=== PATIENT | male | born 1945 | race Caucasian/White ===

== ENCOUNTER 2018-02-16 11:44 | Emergency (ER) | payer MEDICARE, BC ==
[2018-02-16 12:11] VITALS: BP 170/93
[2018-02-16] MEDS ORDERED: Gelfoam 12-7 ADSORBABL SPONGE* 1 EA SPONGE TOPICAL ONE (13:01)
[2018-02-16] MEDS ORDERED: Tetan/Diph/Pertus SYR(Tdap)* 0.5 ML SYR(BOOSTRIX) use SYR IM ONE (13:01)
--- NOTE | 2018-02-16 13:09 | UC ---
Bite Injury/Animal HPI - HPI Summary HPI Summary: Patient was playing with his 1-year-old puppy about 1 hour [employer] when the puppy accidentally grazed the patient's right thumb with his teeth. Patient presents with a laceration to his thumb. Last tetanus 2007. Puppy up-to-date on all vaccinations including rabies. - History of Current Complaint Chief Complaint: UCBiteInjury Stated Complaint: THUMB LAC Time Seen by Provider: 02/16/18 12:49 Hx Obtained From: Patient Severity Currently: Moderate Severity Initially: Moderate Pain Intensity: 6 Pain Scale Used: 0-10 Numeric Onset/Duration: Sudden Onset, Lasting Hours, Still Present Type of Bite: Pet Has Animal Been Immunized?: Yes Character: Abrasion/Laceration Aggravating Factor(s): Nothing Alleviating Factor(s): Nothing Associated Signs And Symptoms: Negative: Fever, Erythema, Drainage, Numbness/ Tingling, Limited ROM Animal Available for Observation: Yes - Allergies/Home Medications Allergies/Adverse Reactions: Allergies Allergy/AdvReac Type Severity Reaction Status Date / Time Penicillins Allergy Intermediate Hives Verified 02/16/18 12:13 dabigatran etexilate Allergy Hives Verified 02/16/18 12:13 yellow dye Allergy Hives Verified 02/16/18 12:13 Home Medications: Home Medications Aspirin [Aspir-Low] 81 mg PO DAILY WITH MEAL 02/16/18 [History Confirmed ] Atorvastatin* [Lipitor 20 MG*] 20 mg PO DAILY 02/16/18 [History Confirmed ] Verapamil HCl [Verapamil ER] 120 mg PO DAILY WITH MEAL 02/16/18 [History] PMH/Surg Hx/FS Hx/Imm Hx Cardiovascular History: Cardiac Disease - pacemaker - Surgical History Surgical History: Yes Surgery Procedure, Year, and Place: for pacemaker, vasectomy - Family History Known Family History: Positive: Unknown - Social History Alcohol Use: Weekly Alcohol Amount: 1 drink/week Substance Use Type: None Smoking Status (MU): Never Smoked Tobacco Review of Systems Constitutional: Negative Skin: Other - laceration Respiratory: Negative Cardiovascular: Negative Gastrointestinal: Negative Musculoskeletal: Negative All Other Systems Reviewed And Are Negative: Yes Physical Exam Triage Information Reviewed: Yes Appearance: Well-Appearing, No Pain Distress, Well-Nourished Vital Signs: Initial Vital Signs Temp 97.9 F 02/16/18 12:03 Pulse 44 06/20/18 12:03 Resp 18 02/16/18 12:03 BP 170/93 02/16/18 12:03 Pulse Ox 98 02/16/18 12:03 Vital Signs Reviewed: Yes Eyes: Positive: Conjunctiva Clear ENT: Positive: Hearing grossly normal Neck: Positive: Supple Respiratory: Positive: No respiratory distress, No accessory muscle use Cardiovascular: Positive: Pulses Normal Abdomen Description: Positive: Soft Musculoskeletal: Positive: ROM Intact, No Edema Neurological: Positive: Alert Psychological: Positive: Age Appropriate Behavior Skin: Positive: Other - 1.5cm x 0.3cm jagged area of skin avulsion right thumb overlying proximal phalanx. Negative: rashes Bite Injury Course/Dx - Differential Dx/Diagnosis Provider Diagnoses: SKIN AVULSION RIGHT THUMB DUE TO DOG BITE Discharge - Sign-Out/Discharge Documenting (check all that apply): Discharge/Admit/Transfer - Discharge Plan Condition: Stable Disposition: HOME Prescriptions: Doxycycline Monohydrate [Doxycycline Monohydrate] 1 cap PO BID #20 cap Patient Education Materials: Animal Bite (ED) Referrals: Elvis Duong MD [Primary Care Provider] - If Needed Additional Instructions: AFTER 3-4 DAYS GELFOAM SHOULD START TO FLAKE OFF. GENTLY REMOVE IT AND THEN COVER WITH NON STICK BANDAGE. WEAR THE SPLINT NEEDED TO KEEP FINGER FROM BENDING. TAKE DOXY FOR FULL COURSE. ENSURE ADEQUATE PROTECTION FROM THE SUN WHILE ON THIS MEDICATION. SEEK FOLLOW-UP IF YOU DEVELOP SPREADING REDNESS OF THE SKIN, PURULENT DRAINAGE, FEVER, INCREASED PAIN OR ANY OTHER CONCERNING SYMPTOMS. TETANUS IMMUNIZATION GIVEN (TDAP): You have been given an immunization against tetanus. Please record this in your records. In general, a booster is needed only once every 10 years. The tetanus shot protects against tetanus or "lockjaw," which is a complication of certain wound infections (the tetanus shot cannot protect against the actual infection). The immunization site may become warm and red due to local reaction. If this occurs, apply warm compresses and take aspirin or ibuprofen to reduce inflammation and discomfort. Return for evaluation if the reaction becomes severe. - Billing Disposition and Condition Condition: STABLE Disposition: Home
== END 2018-02-16 13:26 | disposition home or self-care (01) ==
LOC: UCEAST 11:44
DX: S61.051A Open bite of right thumb without damage to nail, initial encounter (principal); W54.0XXA Bitten by dog, initial encounter; Y92.9 Unspecified place or not applicable; Z79.82 Long term (current) use of aspirin; Z95.0 Presence of cardiac pacemaker
CPT/HCPCS: 90715; 99213; A9270-GY; G0463

== ENCOUNTER 2022-07-29 05:39 | Observation (INO) ==
[2022-07-29] MEDS ORDERED: Buffered Lidocaine 1% SYRIN 1 ml INTRADERM ONE (06:00)
[2022-07-29] MEDS ORDERED: Lactated Ringers 1000 ml BAG 1,000 ML IV SCH ×3 (06:00→15:29)
[2022-07-29] MEDS ORDERED: Clindamycin 900 MG/D5W BAG 900 MG/50 ML BAG IVPB ONE (06:10)
[2022-07-29 06:16] LABS: INR 1.1 (0.89-1.11)
[2022-07-29] MEDS ORDERED: ROPIVACAINE 5 MG/ML 30 ML BTL (0.5%) ONE (07:03)
[2022-07-29] MEDS ORDERED: Lidocaine 1% MPF 5 ML VIAL ONE (07:03)
[2022-07-29] MEDS ORDERED: Lidocaine 2% PF 5 ML VIAL ONE (07:21)
[2022-07-29] MEDS ORDERED: Rocuronium 50 mg VIAL 10 mg/ml 5 ml VIAL (50 mg) ONE ×2 (07:21→09:14)
[2022-07-29] MEDS ORDERED: fentaNYL 100 mcg/2 ml 50 MCG/ML VIAL ONE (07:21)
[2022-07-29] MEDS ORDERED: Propofol 10 MG/ML 20 ML BTL ONE (07:21)
[2022-07-29] MEDS ORDERED: Midazolam 2 mg/2 ml VIAL 1 mg/ml 2 ml VIAL (2 mg) ONE ×2 (07:22→07:24)
[2022-07-29] MEDS ORDERED: Vancomycin 1,000 MG VIAL ONE (07:37)
[2022-07-29] MEDS ORDERED: Phenylephrine IV 10 MG/ML 1 ml VIAL ONE (08:21)
[2022-07-29] MEDS ORDERED: Dexamethasone IV 4 MG/ML VIAL 1 ml VIAL ONE (08:59)
[2022-07-29] MEDS ORDERED: Ondansetron 4 mg VIAL 2 MG/ML 2 ml VIAL ONE (08:59)
[2022-07-29] MEDS ORDERED: HYDROmorphone 1 MG/1 ML SYRINGE IV PRN (10:22)
[2022-07-29] MEDS ORDERED: Naloxone 0.4 mg VIAL 0.4 mg/ml 1 ml VIAL IV PRN (10:22)
[2022-07-29] MEDS ORDERED: Acetaminophen IV 1 GM/100ML 1,000 MG/100 ML BAG IV ONE (11:23)
[2022-07-29] MEDS ORDERED: Ondansetron 4 mg VIAL 2 MG/ML 2 ml VIAL IV PRN (11:50)
[2022-07-29] MEDS ORDERED: Ondansetron ODT 4 mg TAB 4 MG TAB PO PRN (11:50)
[2022-07-29] MEDS ORDERED: Morphine 2 MG/ML SYRINGE IV PRN (11:50)
[2022-07-29] MEDS ORDERED: Lactulose 30 ml UDC PO PRN (11:50)
[2022-07-29] MEDS ORDERED: Magnesium Hydroxide LIQ 30 ML UDC PO PRN (11:50)
[2022-07-29] MEDS ORDERED: Clindamycin 600 MG/D5W BAG 600 MG/50 ML BAG IV SCH ×2 (12:00→16:00)
[2022-07-29] MEDS: Magnesium Hydroxide LIQ 30 ML UDC PO SCH (20:05)
[2022-07-29] MEDS ORDERED: Aspirin EC 81 mg TAB.EC (enteric coated) PO SCH (21:00)
[2022-07-30] MEDS: Clindamycin 600 MG/D5W BAG 600 MG/50 ML BAG IV SCH ×2 (02:11→10:10)
[2022-07-30 06:25] LABS: Hematocrit 35 % (42-52); Hemoglobin 11.9 g/dL (14.0-18.0); Mean Platelet Volume 7.8 fL (7.4-10.4); Platelet Count 127 10^3/uL (150-450)
[2022-07-30 06:42] LABS: Calcium 8.3 mg/dL (8.6-10.3); Potassium 4.5 mmol/L (3.5-5.0); eGFR CKD-EPI 83.5 (>60)
[2022-07-30] MEDS ORDERED: Vitamin THERAPEUTIC TAB PO SCH (09:00)
[2022-07-30] MEDS: Magnesium Hydroxide LIQ 30 ML UDC PO SCH (09:02)
[2022-07-30 11:30] VITALS: BP 114/73
== END 2022-07-30 14:15 | disposition home or self-care (01) ==
LOC: SSU → AA 05:39 → INTOOBSV 05:39
PROVIDERS: ADMIT Orthopaedic Surgery; ATTEND Orthopaedic Surgery

== ENCOUNTER 2023-06-18 16:13 | Inpatient (IN) ==
[2023-06-18 19:31] LABS: ABS Eosinophils 0.3 10^3/uL (0.0-0.5); ABS Lymphocytes 1.2 10^3/uL (1.0-4.8); ABS Monocytes 0.6 10^3/uL (0.0-1.1); ABS Neutrophils 3.1 10^3/uL (1.5-7.6); ABS Nucleated RBC 0.01 10^3/ul; Eosinophil % 5.7 %; Hematocrit 42.3 % (38-53); Hemoglobin 14.5 g/dL (13.2-16.3); Lymphocyte % 23.5 %; Mean Corpuscular Hemoglobin 31.8 pg (27-33); Mean Corpuscular Hgb Conc 34.4 g/dL (31-36); Mean Corpuscular Volume 92.5 fL (80-97); Mean Platelet Volume 7.2 fL (7.5-11.2); Nucleated Red Blood Cells % 0.2 %/100WBC (0.0-0.8); Platelet Count 176 10^3/uL (150-450); Red Blood Count 4.57 10^6/uL (4.06-5.63); Red Cell Distribution Width 14.2 % (12-17); White Blood Count 5.3 10^3/uL (3.6-10.2)
[2023-06-18 19:43] LABS: Albumin 4.1 g/dL (3.2-5.2); Potassium 3.9 mmol/L (3.5-5.0); Total Bilirubin 0.7 mg/dL (0.2-1.0)
[2023-06-18 19:49] LABS: Albumin/Globulin Ratio 1.5 (1-3); C Reactive Protein 27.23 mg/L (<8.01); Creatinine, Serum 1.16 mg/dL (0.67-1.17); Globulin 2.7 g/dL (2-4); Total Protein 6.8 g/dL (6.4-8.9); eGFR CKD-EPI 65.3 (>60)
[2023-06-18 20:12] LABS: Calcium 8.7 mg/dL (8.6-10.3)
[2023-06-19 07:02] LABS: ABS Eosinophils 0.3 10^3/uL (0.0-0.5); ABS Lymphocytes 1.1 10^3/uL (1.0-4.8); ABS Monocytes 0.5 10^3/uL (0.0-1.1); ABS Nucleated RBC 0.01 10^3/ul; Eosinophil % 6.6 %; Hematocrit 40.3 % (38-53); Lymphocyte % 28.3 %; Mean Corpuscular Hemoglobin 31.9 pg (27-33); Mean Corpuscular Hgb Conc 34.8 g/dL (31-36); Mean Corpuscular Volume 91.5 fL (80-97); Mean Platelet Volume 7.2 fL (7.5-11.2); Nucleated Red Blood Cells % 0.2 %/100WBC (0.0-0.8); Platelet Count 156 10^3/uL (150-450); White Blood Count 3.9 10^3/uL (3.6-10.2)
[2023-06-19 07:05] LABS: Albumin 3.8 g/dL (3.2-5.2); Calcium 8.4 mg/dL (8.6-10.3); Magnesium 2.1 mg/dL (1.9-2.7); Total Bilirubin 0.9 mg/dL (0.2-1.0)
[2023-06-19 07:11] LABS: Albumin/Globulin Ratio 1.6 (1-3); Creatinine, Serum 0.96 mg/dL (0.67-1.17); Globulin 2.4 g/dL (2-4); Total Protein 6.2 g/dL (6.4-8.9); eGFR CKD-EPI 81.9 (>60)
[2023-06-19] MEDS ORDERED: VERAPAMIL PM 100 MG PO SCH (09:00)
[2023-06-19] MEDS ORDERED: Aspirin EC 325 mg TAB.EC PO ONE (17:30)
[2023-06-19 19:23] LABS: TSH Ultra Thyroid Stim Horm 1.31 mcIU/mL (0.34-5.60)
[2023-06-19 19:29] LABS: Thyroid Peroxidase Antibodies < 0.25 IU/mL (<9)
[2023-06-19 19:42] LABS: Thyroglobulin Antibody II < 0.9 IU/mL (<4.0)
[2023-06-19] MEDS: VERAPAMIL PM 100 MG PO SCH (22:03)
[2023-06-19] MEDS: Benzocaine/Menthol LOZ PO PRN (23:07)
[2023-06-20 08:14] LABS: ABS Eosinophils 0.3 10^3/uL (0.0-0.5); ABS Lymphocytes 0.9 10^3/uL (1.0-4.8); ABS Monocytes 0.3 10^3/uL (0.0-1.1); ABS Neutrophils 1.6 10^3/uL (1.5-7.6); Eosinophil % 9.1 %; Hematocrit 41.6 % (38-53); Hemoglobin 14.3 g/dL (13.2-16.3); Lymphocyte % 27.9 %; Mean Corpuscular Hemoglobin 31.8 pg (27-33); Mean Corpuscular Hgb Conc 34.4 g/dL (31-36); Mean Corpuscular Volume 92.6 fL (80-97); Mean Platelet Volume 6.8 fL (7.5-11.2); Nucleated Red Blood Cells % 0.1 %/100WBC (0.0-0.8); Platelet Count 171 10^3/uL (150-450); Red Blood Count 4.49 10^6/uL (4.06-5.63); Red Cell Distribution Width 13.9 % (12-17); White Blood Count 3.1 10^3/uL (3.6-10.2)
[2023-06-20 08:30] LABS: Calcium 8.4 mg/dL (8.6-10.3); Creatinine, Serum 0.9 mg/dL (0.67-1.17); Magnesium 2.1 mg/dL (1.9-2.7); eGFR CKD-EPI 88.5 (>60)
[2023-06-20] MEDS: Aspirin EC 81 mg TAB.EC (enteric coated) PO SCH (09:30)
[2023-06-20] MEDS: Benzocaine/Menthol LOZ PO PRN ×4 (09:32→23:01)
[2023-06-20] MEDS ORDERED: Valproic Acid IV 500 MG in NS 0.9% 100 ml BAG 100 ML IVPB ONE (12:15)
[2023-06-20] MEDS: VERAPAMIL PM 100 MG PO SCH (20:12)
[2023-06-21] MEDS: Benzocaine/Menthol LOZ PO PRN ×2 (04:41→15:42)
[2023-06-21] MEDS ORDERED: Valproic Acid IV 500 MG in NS 0.9% 100 ml BAG 100 ML IVPB ONE (08:48)
[2023-06-21] MEDS: Aspirin EC 81 mg TAB.EC (enteric coated) PO SCH (08:52)
[2023-06-21] MEDS ORDERED: hydrALAZINE 20 mg/ml 1 ML Vial IV IV SLOW PU PRN (17:36)
[2023-06-21] MEDS: VERAPAMIL PM 100 MG PO SCH (21:25)
[2023-06-22] MEDS: Benzocaine/Menthol LOZ PO PRN ×2 (10:09→14:25)
[2023-06-22] MEDS: Aspirin EC 81 mg TAB.EC (enteric coated) PO SCH (10:09)
[2023-06-22 11:31] VITALS: BP 131/90
== END 2023-06-22 14:35 | disposition home or self-care (01) | DRG 123 ==
LOC: EDHOLD 16:13 → ED 16:13 → SUATTDRO 23:28 → MED 23:28
PROVIDERS: ADMIT Internal Medicine; ATTEND Internal Medicine Hematology & Oncology

== ENCOUNTER 2024-04-21 03:48 | Inpatient (IN) ==
[2024-04-21 04:35] LABS: ABS Lymphocytes 0.5 10^3/uL (1.0-4.8); ABS Monocytes 0.7 10^3/uL (0.0-1.1); ABS Neutrophils 3.4 10^3/uL (1.5-7.6); ABS Nucleated RBC 0.01 10^3/ul; Eosinophil % 0.2 %; Hematocrit 41.5 % (38-53); Hemoglobin 14.3 g/dL (13.2-16.3); Lymphocyte % 11.6 %; Mean Corpuscular Hemoglobin 32.7 pg (27-33); Mean Corpuscular Hgb Conc 34.4 g/dL (31-36); Mean Corpuscular Volume 94.9 fL (80-97); Mean Platelet Volume 7.6 fL (7.5-11.2); Nucleated Red Blood Cells % 0.3 %/100WBC (0.0-0.8); Platelet Count 137 10^3/uL (150-450); Red Blood Count 4.37 10^6/uL (4.06-5.63); Red Cell Distribution Width 13.9 % (12-17); White Blood Count 4.7 10^3/uL (3.6-10.2)
[2024-04-21 04:47] LABS: Urine Appearance Clear; Urine Bilirubin Negative (Negative); Urine Blood 1+ (Negative); Urine Color Yellow; Urine Glucose Trace (Negative); Urine Ketones Negative (Negative); Urine Nitrite Negative (Negative); Urine Protein 1+ (>=30 mg/dL) (Negative); Urine Specific Gravity 1.014 (1.002-1.030); Urine Urobilinogen Negative (Negative); Urine pH 6.5 (5.0-8.0)
[2024-04-21 04:59] LABS: Urine Bacteria Absent /HPF (Absent); Urine Red Blood Cell Trace(0-2/hpf) /HPF (0-Trace); Urine White Blood Cell Absent /HPF (0-Trace)
[2024-04-21 05:00] LABS: High Sens Troponin Baseline 29 pg/mL (<20)
[2024-04-21 05:10] LABS: ALT 9 U/L (7-52); AST 20 U/L (13-39); Albumin 3.8 g/dL (3.2-5.2); Albumin/Globulin Ratio 1.9 (1-3); Alcohol, S < 13 mg/dL (<13); Alkaline Phosphatase 59 U/L (35-149); Anion Gap 8 mmol/L (2-16); Blood Urea Nitrogen 27 mg/dL (6-24); C Reactive Protein 67.29 mg/L (<8.01); CO2 Carbon Dioxide 23 mmol/L (22-32); Calcium 8.3 mg/dL (8.6-10.3); Chloride 106 mmol/L (101-111); Creatinine, Serum 1.45 mg/dL (0.67-1.17); Glucose 114 mg/dL (70-100); Magnesium 1.7 mg/dL (1.9-2.7); Potassium 4.1 mmol/L (3.5-5.0); Sodium 137 mmol/L (135-145); Total Bilirubin 0.8 mg/dL (0.2-1.0); Total Protein 5.8 g/dL (6.4-8.9); eGFR CKD-EPI 49.6 (>60)
[2024-04-21 05:24] LABS: TSH Ultra Thyroid Stim Horm 3.84 mcIU/mL (0.34-5.60)
[2024-04-21 05:46] LABS: High Sensitivity Troponin 1 Hr 29 pg/mL (<20)
[2024-04-21] MEDS: Iodixanol (CONTRAST) 320 MG/ML 100 ML SDV IV ONE (06:32)
[2024-04-21] MEDS: metroNIDAZOLE IV 500 MG/100ML 500 MG/100 ML BAG IVPB ONE (08:00)
[2024-04-21] MEDS: Lactated Ringers 1000 ml BAG IV.FLUID IV ONE (08:15)
[2024-04-21] MEDS: Magnesium Sulfate 2 gm BAG 2 GM/50 ML BAG IVPB ONE (09:52)
[2024-04-21] MEDS ORDERED: Immune Globulin IV Order (CPOE ENTRY PROTOCOL) IV SCH (10:00)
[2024-04-21] MEDS: Azithromycin 500 mg/250 ml NS 500 MG/250 ML BAG IVPB ONE (10:01)
[2024-04-21] MEDS: cefTRIAXone 1 gm/50 mL D5W 1 GM/50 ML BAG IV SCH (10:58)
[2024-04-21] MEDS: IMMUNE GLOBULIN IV SCH (11:52)
[2024-04-21] MEDS: [UNRECOGNIZED DRUG - OTHER] IV SCH (11:52)
[2024-04-21] MEDS: PYRIDOSTIGMINE BROMIDE 180 MG PO SCH (22:21)
[2024-04-22] MEDS: VERAPAMIL 100 MG PO SCH (00:30)
[2024-04-22] MEDS: NS 0.9% 500 ml BAG 500 ML IV ONE (08:48)
[2024-04-22 08:55] LABS: Calcium 7.8 mg/dL (8.6-10.3); Creatinine, Serum 1.25 mg/dL (0.67-1.17); Potassium 3.9 mmol/L (3.5-5.0); eGFR CKD-EPI 59.3 (>60)
[2024-04-22] MEDS ORDERED: NS 0.9% 500 ml BAG 500 ML IV SCH (09:00)
[2024-04-22 09:39] LABS: Hematocrit 37.7 % (38-53); Hemoglobin 12.7 g/dL (13.2-16.3); Mean Corpuscular Hemoglobin 31.5 pg (27-33); Mean Corpuscular Hgb Conc 33.6 g/dL (31-36); Mean Corpuscular Volume 93.5 fL (80-97); Red Blood Count 4.03 10^6/uL (4.06-5.63); Red Cell Distribution Width 14.2 % (12-17); White Blood Count 2.3 10^3/uL (3.6-10.2)
[2024-04-22 11:08] LABS: ABS Lymphocytes 0.6 10^3/uL (1.0-4.8); ABS Monocytes 0.3 10^3/uL (0.0-1.1); ABS Neutrophils 1.3 10^3/uL (1.5-7.6); ABS Nucleated RBC 0.01 10^3/ul; Eosinophil % 1.3 %; Lymphocyte % 26.8 %; Mean Platelet Volume 7.4 fL (7.5-11.2); Nucleated Red Blood Cells % 0.2 %/100WBC (0.0-0.8); Platelet Count 100 10^3/uL (150-450)
[2024-04-22] MEDS: PTO: Mirabegron 25 mg ER TAB (NF) PO SCH (16:36)
[2024-04-22] MEDS: PTO:Verapamil PM 100 mg CAP (NF) PO SCH (22:44)
[2024-04-23 06:04] LABS: Calcium 7.8 mg/dL (8.6-10.3); Creatinine, Serum 0.94 mg/dL (0.67-1.17); Magnesium 1.6 mg/dL (1.9-2.7); Potassium 3.6 mmol/L (3.5-5.0); eGFR CKD-EPI 83.5 (>60)
[2024-04-23 07:20] LABS: ABS Lymphocytes 0.6 10^3/uL (1.0-4.8); ABS Monocytes 0.3 10^3/uL (0.0-1.1); ABS Neutrophils 1.7 10^3/uL (1.5-7.6); ABS Nucleated RBC 0.01 10^3/ul; Hematocrit 36.2 % (38-53); Hemoglobin 12.5 g/dL (13.2-16.3); Lymphocyte % 22.9 %; Mean Corpuscular Hemoglobin 32.3 pg (27-33); Mean Corpuscular Hgb Conc 34.6 g/dL (31-36); Mean Corpuscular Volume 93.5 fL (80-97); Mean Platelet Volume 7.3 fL (7.5-11.2); Nucleated Red Blood Cells % 0.4 %/100WBC (0.0-0.8); Platelet Count 92 10^3/uL (150-450); Red Blood Count 3.88 10^6/uL (4.06-5.63); Red Cell Distribution Width 14.3 % (12-17); White Blood Count 2.7 10^3/uL (3.6-10.2)
[2024-04-23] MEDS: NS 0.9% 500 ml BAG 500 ML IV ONE (09:45)
[2024-04-23] MEDS: Magnesium Sulf 4 GM/100 ML IV 4,000 MG/100 ML BAG IVPB ONE (09:46)
[2024-04-24 06:03] LABS: ABS Lymphocytes 0.9 10^3/uL (1.0-4.8); ABS Monocytes 0.4 10^3/uL (0.0-1.1); ABS Neutrophils 2.8 10^3/uL (1.5-7.6); Eosinophil % 0.8 %; Hematocrit 37.7 % (38-53); Mean Corpuscular Hemoglobin 31.9 pg (27-33); Mean Corpuscular Hgb Conc 34.6 g/dL (31-36); Mean Corpuscular Volume 92.2 fL (80-97); Mean Platelet Volume 7.8 fL (7.5-11.2); Nucleated Red Blood Cells % 0.1 %/100WBC (0.0-0.8); Platelet Count 106 10^3/uL (150-450); Red Blood Count 4.09 10^6/uL (4.06-5.63); Red Cell Distribution Width 13.9 % (12-17); White Blood Count 4.1 10^3/uL (3.6-10.2)
[2024-04-24 06:53] LABS: Calcium 7.7 mg/dL (8.6-10.3); Creatinine, Serum 1.01 mg/dL (0.67-1.17); Potassium 3.7 mmol/L (3.5-5.0); eGFR CKD-EPI 76.6 (>60)
[2024-04-24] MEDS: NS 0.9% 500 ml BAG 500 ML IV SCH (09:00)
[2024-04-25 05:51] LABS: ABS Eosinophils 0.1 10^3/uL (0.0-0.5); ABS Lymphocytes 0.7 10^3/uL (1.0-4.8); ABS Monocytes 0.5 10^3/uL (0.0-1.1); ABS Neutrophils 3.1 10^3/uL (1.5-7.6); Eosinophil % 1.9 %; Hemoglobin 11.7 g/dL (13.2-16.3); Lymphocyte % 15.9 %; Mean Corpuscular Hemoglobin 32.7 pg (27-33); Mean Corpuscular Hgb Conc 35.5 g/dL (31-36); Mean Corpuscular Volume 92.1 fL (80-97); Mean Platelet Volume 7.6 fL (7.5-11.2); Nucleated Red Blood Cells % 0.1 %/100WBC (0.0-0.8); Platelet Count 111 10^3/uL (150-450); Red Blood Count 3.58 10^6/uL (4.06-5.63); Red Cell Distribution Width 14.1 % (12-17); White Blood Count 4.4 10^3/uL (3.6-10.2)
[2024-04-25] MEDS: NS 0.9% 500 ml BAG 500 ML IV ONE (08:21)
[2024-04-25 18:23] LABS: Hematocrit 34.6 % (38-53); Hemoglobin 12.1 g/dL (13.2-16.3)
[2024-04-26 06:05] LABS: ABS Eosinophils 0.2 10^3/uL (0.0-0.5); ABS Lymphocytes 0.7 10^3/uL (1.0-4.8); ABS Monocytes 0.5 10^3/uL (0.0-1.1); ABS Neutrophils 3.7 10^3/uL (1.5-7.6); Eosinophil % 3.6 %; Hematocrit 32.2 % (38-53); Hemoglobin 11.2 g/dL (13.2-16.3); Lymphocyte % 13.8 %; Mean Corpuscular Hemoglobin 31.8 pg (27-33); Mean Corpuscular Hgb Conc 34.8 g/dL (31-36); Mean Corpuscular Volume 91.5 fL (80-97); Mean Platelet Volume 7.5 fL (7.5-11.2); Nucleated Red Blood Cells % 0.1 %/100WBC (0.0-0.8); Platelet Count 155 10^3/uL (150-450); Red Blood Count 3.52 10^6/uL (4.06-5.63); White Blood Count 5.1 10^3/uL (3.6-10.2)
[2024-04-26 06:43] LABS: Calcium 7.5 mg/dL (8.6-10.3); Creatinine, Serum 0.83 mg/dL (0.67-1.17); Magnesium 1.6 mg/dL (1.9-2.7); Potassium 3.4 mmol/L (3.5-5.0); eGFR CKD-EPI 90.1 (>60)
[2024-04-26] MEDS: Magnesium Sulfate 2 gm BAG 2 GM/50 ML BAG IVPB ONE (08:25)
[2024-04-26] MEDS: Magnesium Sulfate IV 1GM/100ML 1 GM/100 ML BAG IV ONE (09:54)
[2024-04-26] MEDS: Potassium Chlor 20 meq TAB.ER PO SCH (10:48)
[2024-04-26 13:25] LABS: Anaplasma phagocytophilum Negative (Negative); B. miyamotoi PCR, B Negative (Negative); Babesia divergens/MO-1 Negative (Negative); Babesia ducani Negative (Negative); Ehrlichia chaffeensis Negative (Negative); Ehrlichia ewingii/canis Negative (Negative); Ehrlichia muris eauclairensis Negative (Negative)
[2024-04-27 09:22] LABS: ABS Eosinophils 0.2 10^3/uL (0.0-0.5); ABS Lymphocytes 0.9 10^3/uL (1.0-4.8); ABS Monocytes 0.6 10^3/uL (0.0-1.1); ABS Neutrophils 4.9 10^3/uL (1.5-7.6); Eosinophil % 2.9 %; Hematocrit 38.1 % (38-53); Hemoglobin 13.3 g/dL (13.2-16.3); Lymphocyte % 13.4 %; Mean Corpuscular Hemoglobin 31.9 pg (27-33); Mean Corpuscular Hgb Conc 34.8 g/dL (31-36); Mean Corpuscular Volume 91.6 fL (80-97); Mean Platelet Volume 7.3 fL (7.5-11.2); Platelet Count 238 10^3/uL (150-450); Red Blood Count 4.17 10^6/uL (4.06-5.63); Red Cell Distribution Width 14.2 % (12-17); White Blood Count 6.6 10^3/uL (3.6-10.2)
[2024-04-27 10:02] LABS: Calcium 8.3 mg/dL (8.6-10.3); Creatinine, Serum 0.97 mg/dL (0.67-1.17); eGFR CKD-EPI 80.4 (>60)
[2024-04-27 14:47] VITALS: BP 119/86
[2024-04-27] MEDS: CMC:diPHENhydraMINE CREAM 2%(NF) 28 gm TUBE TOPICAL SCH (15:08)
== END 2024-04-27 17:18 | disposition home or self-care (01) | DRG 391 ==
LOC: ED 03:48 → EDHOLD 03:48 → MEDTELE 16:18
PROVIDERS: ADMIT Internal Medicine; ATTEND Hospitalist